=== PATIENT | female | born 1945 | race Caucasian/White ===

== ENCOUNTER 2017-09-06 07:08 | Outpatient (CLI) | payer MEDICARE, OTHER ==
--- NOTE | 2017-09-06 11:52 | MRI ---
MRI RIGHT HIP WITHOUT CONTRAST: Date: 09/06/17 HISTORY: M25.551, right hip pain. Fall. COMPARISON: CT abdomen and pelvis from 2011. FINDINGS: Bones: Severe right-sided osteoarthrosis with subchondral cysts, acetabular sclerosis, and cartilage loss. T here is also subchondral cyst of the left acetabulum. No fracture or malalignment. No significant str ess edema. There is mild narrowing of the pubic symphysis. Ligaments: There is thickening of the right iliofemoral and ilioischial ligaments. No acute ligamentous injury. Labrum: There is degenerative tearing throughout the labrum. Cartilage: Multifocal full thickness cartilage defects of the superior anterior femoral head and underlying acet abulum. Muscles: The muscle signal and bulk is normal. No evidence of quadratus femoris impingement. Intrapelvic Soft Tissues: There appears to be prior cystopexy. There is pelvic floor prolapse containing sigmoid colon and fat which extends deep and posterior to the vaginal vault. IMPRESSION: 1. 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 2. Pelvic floor prolapse of sigmoid colon and fat posterior and deep to the vaginal vault. 3. 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 POS: [facility]
== END 2017-09-06 07:09 | disposition home or self-care (01) ==
LOC: MRI 07:08
PROVIDERS: ATTEND Orthopaedic Surgery
DX: M25.551 Pain in right hip (principal); M16.11 Unilateral primary osteoarthritis, right hip; N81.89 Other female genital prolapse; M85.451 Solitary bone cyst, right pelvis; S73.191A Other sprain of right hip, initial encounter

== ENCOUNTER 2018-10-11 09:15 | Outpatient (CLI) | payer MEDICARE ==
--- NOTE | 2018-10-11 10:06 | ULT ---
Bilateral renal ultrasound CLINICAL INDICATION: Renal Insufficiency, renal cyst. COMPARISON: 01/31/2017 abdomen ultrasound FINDINGS: Right kidney: No solid mass, or hydronephrosis. Right renal exophytic cyst measures 1.7 cm. Left kidney: No solid mass, or hydronephrosis. Left renal cyst measures 1.2 cm. Urinary bladder: Normal IMPRESSION: Bilateral renal cysts. No significant interval detrimental change is demonstrated from prior exam.
== END 2018-10-11 09:16 | disposition home or self-care (01) ==
LOC: BICULT 09:15
PROVIDERS: ATTEND Internal Medicine Nephrology
DX: N28.1 Cyst of kidney, acquired (principal)
CPT/HCPCS: 76770

== ENCOUNTER 2020-04-29 10:46 | Outpatient (CLI) | payer MEDICARE ==
--- NOTE | 2020-04-29 14:30 | BD ---
BONE DENSITOMETRY: Date: 04/29/2020 HISTORY: Postmenopausal screening. FINDINGS: Lumbar Spine: BMD (g/cm2) L1 0.798 T-Score: -1.7 L2 0.941 T-Score: -0.8 L3 0.874 T-Score: -1.9 L4 0.906 T-Score: -1.4 Total 0.881 T-Score: -1.5 Left Femoral Neck: 0.694 T-Score: -1.4 Total Femur: 0.791 T-Score: -1.2 IMPRESSION: Bone mineral density of the lumbar spine and femoral neck both indicate osteopenia. 10 YEAR FRACTURE RISK: Major osteoporotic fracture: 12% Hip fracture: 2.4% POS: [facility]
== END 2020-04-29 10:47 | disposition home or self-care (01) ==
LOC: BICMAMMO 10:46
PROVIDERS: ATTEND Internal Medicine Endocrinology, Diabetes & Metabolism
DX: Z13.820 Encounter for screening for osteoporosis (principal); Z78.0 Asymptomatic menopausal state; E21.3 Hyperparathyroidism, unspecified; M85.89 Other specified disorders of bone density and structure, multiple sites
CPT/HCPCS: 77080

== ENCOUNTER 2020-10-28 10:45 | Outpatient (CLI) | payer MEDICARE | END 2020-10-28 10:46 | disposition home or self-care (01) | LOC: BICULT 10:45 | PROVIDERS: ATTEND Internal Medicine Gastroenterology | DX: R10.9 Unspecified abdominal pain (principal); K21.9 Gastro-esophageal reflux disease without esophagitis; K76.0 Fatty (change of) liver, not elsewhere classified; K76.89 Other specified diseases of liver; N28.1 Cyst of kidney, acquired; Z86.010 Personal history of colon polyps | CPT/HCPCS: 93975 ==

== ENCOUNTER 2022-08-01 09:42 | Outpatient (CLI) | payer MEDICARE | END 2022-08-01 09:43 | disposition home or self-care (01) | LOC: MRI 09:42 | PROVIDERS: ATTEND Orthopaedic Surgery | DX: S46.011A Strain of muscle(s) and tendon(s) of the rotator cuff of right shoulder, initial encounter (principal); S43.431A Superior glenoid labrum lesion of right shoulder, initial encounter; M19.011 Primary osteoarthritis, right shoulder; Z95.0 Presence of cardiac pacemaker | CPT/HCPCS: 71045 ==

== ENCOUNTER 2023-08-03 13:32 | Outpatient (CLI) | payer MEDICARE ==
[2023-08-03 15:38] LABS: #Eosinphils 0.1 10x3/uL (0.0-0.5); #Monocytes 0.5 10x3/uL (0.0-1.1); #Neutrophils 4.3 10x3/uL (1.5-8.4); %Basophils 0.5 % (0.0-2.0); %Eosinophils 2.1 % (0.0-6.0); %Lymphocytes 19.9 % (18.0-47.0); %Monocytes 8.2 % (0.0-10.0); Hematocrit 36.4 % (34.9-44.5); Mean Corpuscular Hemoglobin 30.1 pg (27.0-33.0); Mean Corpuscular Volume 91.2 fl (81.6-98.3); Mean Platelet Volume 11.4 fl (7.4-10.4); Platelet Count 207 10x3/uL (150-450); RBC Distribution Width 13.7 % (11.5-14.5); Red Blood Cell (RBC) Count 3.99 10x6/uL (3.90-5.03); White Blood Cell (WBC) Count 6.2 10x3/uL (3.5-10.5)
[2023-08-03 15:45] LABS: Prothrombin Time 10.7 sec (9.5-12.1)
[2023-08-03 16:02] LABS: Anion Gap 12 mmol/L (10-20); BUN (Urea Nitrogen) 24 mg/dL (9.8-20.1); Calc. Creatinine Clearance 0 mL/min (70-130); Calcium 10.6 mg/dL (7.8-10.44); Carbon Dioxide 24 mmol/L (23-31); Chloride 108 mmol/L (98-107); Estimated GFR 71; Glucose 118 mg/dL (83-110); Potassium 4.6 mmol/L (3.5-5.1); Sodium 139 mmol/L (136-145)
== END 2023-08-03 13:33 | disposition home or self-care (01) ==
LOC: LABBT 13:32
PROVIDERS: ATTEND Orthopaedic Surgery
DX: Z01.818 Encounter for other preprocedural examination (principal); M16.12 Unilateral primary osteoarthritis, left hip
CPT/HCPCS: 80048; 85025; 85610; 87081; 93005; 93010

== ENCOUNTER 2023-08-08 05:36 | Inpatient (IN) | payer MEDICARE ==
[2023-08-08] MEDS ORDERED: PROPOFOL 20 ML ONE (06:24)
[2023-08-08] MEDS ORDERED: Rocuronium Bromide 10 MG/ML (10ML VIAL) ONE (06:24)
[2023-08-08] MEDS ORDERED: fentaNYL PF 100 MCG/2 ML SYRINGE ONE ×2 (06:24→07:48)
[2023-08-08] MEDS ORDERED: Midazolam HCl 2 mg/2 ml Vial ONE (06:24)
[2023-08-08] MEDS ORDERED: Sodium Chloride 0.9% 100 ML ONE (06:32)
[2023-08-08] MEDS ORDERED: Tranexamic Acid 1,000 MG/10 ML VIAL ONE (06:32)
[2023-08-08] MEDS ORDERED: Vancomycin 1 GM/200 ML (FROZEN) BAG ONE (06:32)
[2023-08-08] MEDS ORDERED: Clindamycin/D5W 600 mg/50 ml Premix Bag ONE (07:00)
[2023-08-08] MEDS ORDERED: Lidocaine 2% PF 5 ML VIAL ONE ×2 (07:21→08:47)
[2023-08-08] MEDS ORDERED: Promethazine HCl 25 MG SUPP PR PRN (08:00)
[2023-08-08] MEDS ORDERED: diphenhydrAMINE 50 MG/ML VIAL IM PRN (08:00)
[2023-08-08] MEDS ORDERED: Ondansetron PF 4 MG/2 ML Vial IVP PRN (08:00)
[2023-08-08] MEDS ORDERED: HYDROcodone/Acetaminophen 5/325 mg Tablet PO PRN ×2 (08:00)
[2023-08-08] MEDS ORDERED: Bupivacaine 0.25% 10 ML VIAL EPIDURAL PRN (08:00)
[2023-08-08] MEDS ORDERED: Naloxone HCl 0.4 mg/ml Vial IVP PRN (08:00)
[2023-08-08] MEDS ORDERED: Naloxone HCl 0.4 mg/ml Vial IV PRN (08:00)
[2023-08-08] MEDS ORDERED: diphenhydrAMINE 50 MG/ML VIAL IVP PRN (08:00)
[2023-08-08] MEDS ORDERED: Zolpidem Tartrate 5 MG TAB PO PRN ×2 (08:00→09:57)
[2023-08-08] MEDS ORDERED: Moisturizing Cream (Eucerin) 113 GM JAR TOP PRN (08:00)
[2023-08-08] MEDS ORDERED: Promethazine HCl 25 MG/ML VIAL IM PRN (08:00)
[2023-08-08] MEDS ORDERED: Ondansetron HCl/PF 4 MG/2 ML Vial IVP PRN (08:10)
[2023-08-08] MEDS ORDERED: SUGAMMADEX SODIUM 200 MG/2 ML VIAL ONE (08:52)
[2023-08-08 13:07] VITALS: BMI 27.1
[2023-08-08] MEDS: CEFAZOLIN 2 GM in Sodium Chloride 0.9% 100 ML IVPB SCH (15:44)
[2023-08-08] MEDS: Sodium Chloride 0.9% 1,000 ML IV SCH (16:12)
[2023-08-08] MEDS: diphenhydrAMINE 25 MG CAP PO PRN (17:40)
[2023-08-08] MEDS: Ferrous Gluconate 324 MG TAB PO SCH (21:18)
[2023-08-08] MEDS: Senokot S 8.6-50 MG TAB PO SCH (21:18)
[2023-08-08] MEDS: Aspirin 81 mg Enteric Coated Tablet PO SCH (21:18)
[2023-08-08] MEDS: FENTANYL 500 MCG/10 ML VIAL 500 MCG, Bupivacaine 0.75% 10 ML in Sodium Chloride 0.9% 80 ML EPIDURAL SCH (23:45)
[2023-08-09] MEDS: Acetaminophen 325 MG TAB PO PRN (03:12)
[2023-08-09 05:17] LABS: Hematocrit 32.6 % (36.0-47.0); Hemoglobin 10.2 g/dL (12.0-16.0); Mean Corpuscular HGB CONC 31.3 g/dL (32.0-36.0); Mean Corpuscular Hemoglobin 29.1 pg (27.0-31.0); Mean Corpuscular Volume 93.1 fl (78.0-98.0); Mean Platelet Volume 11.7 fL (7.4-10.4); Platelet Count 161 10x3/uL (130-400); RBC Distribution Width 13.6 % (11.5-14.5); White Blood Cell (WBC) Count 7.8 10x3/uL (4.8-10.8)
[2023-08-09] MEDS: Multivitamin W/ Minerals 1 TAB PO SCH (08:41)
[2023-08-09] MEDS: Ketorolac Tromethamine 30 MG (1 mL) VIAL IVP SCH (10:33)
[2023-08-09] MEDS: traMADol HCl 50 MG TAB PO PRN (10:59)
[2023-08-09] MEDS ORDERED: Albuterol 200 PUFF (6.7GM INHALER) INH PRN (12:28)
[2023-08-09] MEDS ORDERED: Furosemide 40 MG TAB PO PRN (12:28)
[2023-08-09] MEDS: Alogliptin 6.25 MG TAB PO SCH (20:25)
[2023-08-09] MEDS: Milk Of Magnesia 30 ML UDCUP PO PRN (20:26)
[2023-08-09] MEDS: metFORMIN 500 MG TAB PO SCH (20:26)
[2023-08-09] MEDS: Lisinopril 20 MG TAB PO SCH (20:26)
[2023-08-09] MEDS: Rosuvastatin 5 MG TAB PO SCH (20:29)
[2023-08-10 04:01] LABS: Hematocrit 31.2 % (36.0-47.0); Hemoglobin 10.1 g/dL (12.0-16.0); Mean Corpuscular HGB CONC 32.4 g/dL (32.0-36.0); Mean Corpuscular Hemoglobin 30.4 pg (27.0-31.0); Mean Platelet Volume 11.5 fL (7.4-10.4); Platelet Count 146 10x3/uL (130-400); RBC Distribution Width 13.5 % (11.5-14.5); Red Blood Cell (RBC) Count 3.32 mill/uL (4.20-5.40); White Blood Cell (WBC) Count 7.9 10x3/uL (4.8-10.8)
[2023-08-10] MEDS: Levothyroxine Sodium 112 MCG TAB PO SCH (06:10)
[2023-08-10 08:23] VITALS: BP 131/77; TEMP 99.5
[2023-08-10] MEDS: Lithium Carbonate 150 MG CAP PO SCH (09:15)
[2023-08-10] MEDS: Amlodipine 5 MG TAB PO SCH (09:15)
[2023-08-10] MEDS: traMADol HCl 50 MG TAB PO PRN (09:17)
== END 2023-08-10 10:59 | disposition home or self-care (01) | DRG 470 ==
LOC: SDC 05:36 → SJJU 09:57 → OBSVTOIN 08-10 08:50
PROVIDERS: ADMIT Orthopaedic Surgery; ATTEND Orthopaedic Surgery
PROC: 0SRB04Z Replacement of Left Hip Joint with Ceramic on Polyethylene Synthetic Substitute, Open Approach (ICD-10-PCS; principal; 2023-08-08)
DX: M16.12 Unilateral primary osteoarthritis, left hip (principal); M54.16 Radiculopathy, lumbar region; J45.909 Unspecified asthma, uncomplicated; Z96.641 Presence of right artificial hip joint; K21.9 Gastro-esophageal reflux disease without esophagitis; F32.A Depression, unspecified; E11.9 Type 2 diabetes mellitus without complications; Z90.710 Acquired absence of both cervix and uterus; Z79.899 Other long term (current) drug therapy; Z98.890 Other specified postprocedural states; Z95.0 Presence of cardiac pacemaker; Z82.49 Family history of ischemic heart disease and other diseases of the circulatory system; Z83.3 Family history of diabetes mellitus; Z79.890 Hormone replacement therapy
CPT/HCPCS: 36415; 72170; 85027; 96374; 96375; 96376; C1776; G0378; J1885; J2001; J2250; J2704; J3010; J3370-JW; J3490